=== PATIENT | female | born 1995 | race Caucasian/White ===

== ENCOUNTER 2021-03-25 11:11 | Emergency (ER) | payer SELFPAY ==
[2021-03-25 11:47] VITALS: BP 110/70; PULSE 77
--- NOTE | 2021-03-25 12:09 | EDM.PDOC ---
ED HPI GENERAL MEDICAL PROBLEM - General Chief Complaint: Skin Complaint Stated Complaint: NEEDS INGROWN HAIR REMOVED Time Seen by Provider: 03/25/21 11:47 Source of Information: Reports: Patient, RN Notes Reviewed History Limitations: Reports: No Limitations - History of Present Illness INITIAL COMMENTS - FREE TEXT/NARRATIVE: Patient is a 25-year-old female presenting to the emergency department with complaints of painful lump on her left labia majora. Reports on Thursday the area started become inflamed. She did have an ingrown hair that they were able to remove. It has been getting progressively more inflamed and painful. She is had no fever, chills, nausea, or vomiting. Denies any drainage from the site. She has been taking warm baths to help with discomfort as well as Tylenol and ibuprofen. 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 ED EXAM, SKIN/RASH Exam: See Below Exam Limited By: No Limitations General Appearance: Alert, WD/WN, No Apparent Distress Respiratory/Chest: No Respiratory Distress, Lungs Clear, Normal Breath Sounds, No Accessory Muscle Use, Chest Non-Tender Cardiovascular: Normal Peripheral Pulses, Regular Rate, Rhythm, No Edema, No Gallop, No JVD, No Murmur, No Rub (Female) Exam: Other (1.5 cm area of redness and induration to the left labia majora. Area is firm with no underlying fluctuance.) Neurological: Alert, Oriented, CN II-XII Intact, Normal Cognition, Normal Gait, Normal Reflexes, No Motor/Sensory Deficits Psychiatric: Normal Affect, Normal Mood Course - Vital Signs Last Recorded V/S: Last Vital Signs Temp 97.4 F 03/25/21 11:44 Pulse 77 03/25/21 11:44 Resp 16 03/25/21 11:44 BP 110/70 03/25/21 11:44 Pulse Ox 100 03/25/21 11:44 - Re-Assessments/Exams Free Text/Narrative Re-Assessment/Exam: Patient is a 25-year-old female presenting to the emergency department with complaints of a painful, reddened area, induration to her left labia majora. Reports inflammation started Thursday. They did remove an ingrown hair but has been getting progressively more inflamed. She is had no fever, chills, nausea, or vomiting. She is been using Tylenol, ibuprofen, and warm baths. She did contact her primary, Dr. Auguste, and she is unable to see her till . On exam, there is a 1.5 cm area of redness, induration. Area is firm with no underlying fluctuance. It is too soon to drain at this point as infection seems fairly deep. I will start patient on cephalexin. Recommend warm compresses as well as ibuprofen. She does complain of significant discomfort with ambulation. I will send hydrocodone with Tylenol for treatment of this. Recommend that she follow-up with Dr. Auguste on of this week to have it rechecked as if it moves more superficially, he may benefit from drainage. She verbalized understanding of this. Discharge instructions as documented. Departure - Departure Time of Disposition: 12:07 Disposition: Home, Self-Care 01 Condition: Good Clinical Impression: H/O ingrown hair - Discharge Information *PRESCRIPTION DRUG MONITORING PROGRAM REVIEWED*: No *COPY OF PRESCRIPTION DRUG MONITORING REPORT IN PATIENT ADALGISA: No Prescriptions: cephALEXin [Keflex] 500 mg PO Q6H 5 Days #20 cap Referrals: Anila Auguste MD [Primary Care Provider] - Forms: ED Department Discharge, ED Return to Work/School Form Additional Instructions: You were seen in the emergency department today for a painful area swelling to your left labia. On exam, there is an area of infection. As we discussed, it is too early to drain this area as it is still quite deep in the tissues. You been started on cephalexin which is an antibiotic. Take this as prescribed. Recommend warm compresses and warm baths a few times daily for the next few days. Take ibuprofen routinely to help the pain and inflammation. For pain not relieved by this, you may take 1 hydrocodone. Do not work or drive for 12 hours after taking this as it can be sedating. Schedule follow-up appointment with your primary, Dr. Hawkins, for or Thursday of this week to have the area rechecked as an may benefit from drainage at that time. If you should experience any new or worsening symptoms, please not hesitate to return to the emergency department for reevaluation. Sepsis Event Note (ED) - Evaluation Sepsis Screening Result: No Definite Risk - Focused Exam Vital Signs: Vital Signs Temp Pulse Resp BP Pulse Ox 03/25/21 11:44 97.4 F 77 16 110/70 100
== END 2021-03-25 12:53 | disposition home or self-care (01) ==
LOC: JD.ED 11:11
DX: L73.1 Pseudofolliculitis barbae (principal)
CPT/HCPCS: 99283